=== PATIENT | female | born 1985 | race Caucasian/White ===

== ENCOUNTER → 2023-07-10 | Day surgery (SDC) | payer MEDICAID ==
[~2023-07-10] VITALS: Ht 162.6 cm; Wt 90.7 kg
[~2023-07-10] MED LIST: ABIL10 PO; BUPIVACAINE HCL/PF 0.5% (5MG/ML) 10ML ONE; CEFAZOLIN SODIUM 1000MG/VIAL ONE; DEXAMETHASONE 4MG/ML 1ML VIAL ONE; DULA1.5P SQ; FENTANYL CITRATE/PF 50MCG/ML 2ML VIAL IV PRN; FENTANYL CITRATE/PF 50MCG/ML 2ML VIAL ONE; FERR236T3 PO; HYDROMORPHONE HCL/PF 2MG/ML CPJ IV PRN; KETOROLAC 60MG/2ML VIAL IM ONE; LISI-186 PO; MEPERIDINE HCL/PF 25MG/ML CPJ IV PRN; METF-414 PO; MIDAZOLAM HCL 2 MG/2 ML VIAL ONE; MULT-622 PO; ONDANSETRON HCL 4MG/2ML INJ ONE; PANT40TA51 PO; PROPOFOL 200MG/20ML VIAL IV ONE; ROCURONIUM BROMIDE 10MG/ML VIAL 5ML IV ONE; SERT50TA PO; SKIN ADHESIVE 0.7 GM EA TOP ONE; SODIUM CHLORIDE 0.9% 1,000 ML IV SCH; SUGAMMADEX SODIUM 200 MG/2 ML VIAL IV NR
[2023-07-10 06:57] LABS: UCG SCREEN NEGATIVE
[2023-07-10] MEDS: ONDANSETRON HCL 4MG/2ML INJ IV PRN (10:30)
== END | disposition home or self-care (01) ==
LOC: OR 05:57
PROVIDERS: ATTEND Surgery
DX: K80.10 Calculus of gallbladder with chronic cholecystitis without obstruction (principal); I10 Essential (primary) hypertension; E11.9 Type 2 diabetes mellitus without complications; F32.9 Major depressive disorder, single episode, unspecified; Z79.84 Long term (current) use of oral hypoglycemic drugs; Z79.899 Other long term (current) drug therapy; Z98.890 Other specified postprocedural states
CPT/HCPCS: 47562; 81025; 82962; 88304; J3010; J3490 ×2; J0690; J1100; J1885; J2250; J2405; J2704; J7030